=== PATIENT | male | born 1995 | race Two or more races ===

== ENCOUNTER 2022-09-15 16:07 | Emergency (ER) | payer SELFPAY ==
[~2022-09-15] VITALS: Ht 170.2 cm; Wt 90.5 kg
[2022-09-15] MEDS ORDERED: IBUP-1455 PO (17:57)
[2022-09-15 18:24] VITALS: BP 126/66; PULSE 61; RESP 18; TEMP 99; O2SAT 95
== END 2022-09-15 18:25 | disposition home or self-care (01) ==
LOC: ER 16:07
DX: S93.402A Sprain of unspecified ligament of left ankle, initial encounter (principal); X58.XXXA Exposure to other specified factors, initial encounter; Y93.66 Activity, soccer; Y92.89 Other specified places as the place of occurrence of the external cause; Y99.8 Other external cause status
CPT/HCPCS: 72100; 73502; 73610